=== PATIENT | female | born 1990 | race Caucasian/White ===

== ENCOUNTER 2017-01-18 06:30 | Inpatient (IN) | payer BC, OTHER ==
[~2017-01-18] VITALS: Ht 152.4 cm; Wt 69.9 kg
--- NOTE | ~2017-01-18 | FD ---
ADMIT: 01/18/2017 RM/LOC: 228 [facility] MR#: [id number] 2620 [facility] [address] [place] [id number] MALLORY LÓPEZ Abelino [address] [place] [address] Final Diagnosis SEX: F AGE: 26 : 1990 ADMISSION DATE: 01/18/2017 DISCHARGE DATE: 01/19/2017 FINAL DIAGNOSIS: 1. Status post spontaneous vaginal delivery. 2. Obesity. 3. Insufficient weight gain in . 4. Intrahepatic cholestasis of . PROCEDURE: Spontaneous vaginal delivery. Demetra Paz MD/ august JOB #: [id number] CC: Demetra Paz MD, Attending Physician Demetra Paz MD, Family Physician
--- NOTE | ~2017-01-18 | HP ---
ADMIT: 01/18/2017 RM/LOC: 228 [facility] MR#: [id number] [address] [place], [place] [id number] MALLORY LÓPEZ [address] [place] [address] History and Physical SEX: F AGE: 26 : 1990 DATE OF SERVICE: CHIEF COMPLAINT: Induction of labor. HISTORY OF PRESENT ILLNESS: The patient is a 26-year-old, 2, para 1-0- 0-1, with an intrauterine at 37-1/7th weeks by last menstrual period, consistent with an 8-week ultrasound, who presents to Labor and Delivery for induction of labor at term secondary to intrahepatic cholestasis of . PAST MEDICAL HISTORY: 1. Obesity. 2. Insufficient weight gain. 3. Intrahepatic cholestasis of . PAST SURGICAL HISTORY: None. FAMILY HISTORY: Noncontributory. SOCIAL HISTORY: The patient denies alcohol, tobacco, or illicit drug use. She is and employed part-time at [employer]. MEDICATIONS: 1. vitamins 1 tablet p.o. daily. 2. Vistaril 25 mg one capsule b.i.d. p.r.n. itching. 3. Ursodiol 300 mg 1 tablet p.o. t.i.d. ALLERGIES: NO KNOWN MEDICAL ALLERGIES. REVIEW OF SYSTEMS: The patient denies vaginal bleeding, uterine contractions, loss of fluid, or decreased movement. OBSTETRICAL LABS: Blood type O positive, antibody screen negative, RPR nonreactive, rubella immune, HIV negative, gonorrhea and chlamydia negative. Hepatitis B surface antigen negative. Diabetic screen 107. Group B strep negative. PHYSICAL EXAMINATION: GENERAL: A well-developed, well-nourished female, alert and oriented x3, in no acute distress. VITAL SIGNS: Blood pressure 117/77, pulse 107, respirations 20, temperature 96.1 degrees Fahrenheit, oxygen saturation 95% on room air. HEENT. Head is normocephalic and atraumatic. Pupils are equal, round, and reactive. Extraocular muscles are intact. NECK: Supple. Trachea midline. Thyroid not palpable. HEART: Regular rate and rhythm. LUNGS: Clear to auscultation bilaterally. ABDOMEN: Soft, nontender, and gravid. EXTREMITIES: No clubbing, cyanosis, or edema. NEUROLOGIC: Cranial nerves II through XII grossly intact. 2+ deep tendon ADMIT: 01/18/2017 RM/LOC: 228 [facility] MR#: [id number] 2620 [facility] [address] [place] [id number] MALLORY LÓPEZ [address] [place] [address] History and Physical SEX: F AGE: 26 : 1990 reflexes noted. PELVIC: Sterile vaginal examination reveals the cervix to be 5 cm dilated, 80% effaced, -2 station. heart tones are in the 130s to 140s with 15 x 15 accelerations, moderate long-term variability, and no decelerations. Irregular uterine contractions are noted on the monitor. ASSESSMENT AND PLAN: 1. This is a 26-year-old, 2, para 1-0-0-1, with an intrauterine at 37 and 1/7th weeks by last menstrual period consistent with an 8-week ultrasound, who presents to Labor and Delivery for induction of labor at term secondary to intrahepatic cholestasis of . 2. Group B strep negative. No prophylaxis will be provided. 3. Fetus is vertex and overall reassuring. Demetra Paz MD/ priyank JOB #: [id number] CC: Demetra Paz, Attending Physician Demetra L Haake, Family Physician
--- NOTE | 2017-01-19 13:58 | OR ---
ADMIT: 01/18/2017 RM/LOC: 228 [facility] MR#: [id number] [id number] [place], [place] [id number] MALLORY LÓPEZ [address] [place] [address] Operative/Delivery Room Report SEX: F AGE: 26 : 1990 SURGERY DATE: 01/18/2017 SURGEON: Demetra Paz MD The patient delivered a viable male by spontaneous vaginal delivery at 1235 hours. The infant was placed on the mother's abdomen, and the cord was doubly clamped and cut. The was handed off to the awaiting nurse. Cord blood was sent. The infant's weight was 3060 g. scores were 8 and 9. The placenta then delivered spontaneously intact with a three-vessel cord. Twenty units of Pitocin were infused with intravenous fluids. Examination of the perineum revealed a periclitoral and first-degree laceration, which were repaired using lidocaine for local anesthesia with 3-0 Vicryl in the usual fashion with excellent hemostasis. Estimated blood loss for the entire procedure was 300 mL. The patient and infant are in her room in stable condition. Demetra Paz MD/ priyank JOB #: [id number] CC: Demetra Paz, Attending Physician Demetra Paz, Family Physician
[2017-01-20] MEDS ORDERED: COLACE-DPS100 MG PO (12:12)
[2017-01-20] MEDS ORDERED: MOTRIN-DPS800 MG PO (12:12)
[2017-01-20] MEDS ORDERED: PRENATAL VIT1 TAB PO (12:12)
[2017-01-20] MEDS ORDERED: NIPPLECREAM TP (12:13)
[2017-01-20] MEDS ORDERED: TYLENOL #3 DPS1 TAB PO (12:13)
== END 2017-01-19 17:00 | disposition home or self-care (01) | DRG 775 ==
LOC: BC 06:30 → 2LDRP 06:30 → BC 06:33 → 2LDRP 06:56 → BC 02-07 08:00
PROVIDERS: ADMIT Obstetrics & Gynecology
PROC: 10E0XZZ Delivery of Products of Conception, External Approach (ICD-10-PCS; principal; 2017-01-18)
PROC: 10907ZC Drainage of Amniotic Fluid, Therapeutic from Products of Conception, Via Natural or Artificial Opening (ICD-10-PCS; principal; 2017-01-18)
PROC: 0UQJXZZ Repair Clitoris, External Approach (ICD-10-PCS; principal; 2017-01-18)
PROC: 0HQ9XZZ Repair Perineum Skin, External Approach (ICD-10-PCS; principal; 2017-01-18)
DX: O26.62 Liver and biliary tract disorders in childbirth (principal); K83.1 Obstruction of bile duct; O26.13 Low weight gain in pregnancy, third trimester; E66.9 Obesity, unspecified; O99.214 Obesity complicating childbirth; O70.0 First degree perineal laceration during delivery; O71.89 Other specified obstetric trauma; Z68.31 Body mass index [BMI] 31.0-31.9, adult; Z3A.37 37 weeks gestation of pregnancy; Z37.0 Single live birth